=== PATIENT | male | born 1970 | race Caucasian/White ===

== ENCOUNTER → 2017-12-26 | Outpatient (CLI) | payer BC ==
--- NOTE | 2017-12-26 08:16 | DIAGNOSTIC IMAGING REPORT ---
FUSION CT SINUSES W/O HISTORY: 47 years-old Male CHRONIS SINUSITIS reported mass of the left middle meatus COMPARISON: None available TECHNIQUE: Multiple axial CT images of the paranasal sinuses were obtained without the use of IV contrast. Axial [employer] images were also obtained. A dose lowering technique was used consistent with the principals of LIZETT. FINDINGS: The imaged intracranial structures demonstrate no acute abnormality. 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 No skull fracture. Mastoid air cells and middle ear cavities are clear. Soft tissues, scalp and orbits are within normal limits. There is severe mucosal thickening of the left maxillary sinus with central increased attenuation suggesting inspissated mucosal debris. Absent medial wall of the left maxillary sinus suggests prior maxillary antrostomy. Heterogeneous mucosal debris of the left maxillary sinus extends through the left maxillary ostiomeatal unit into the left middle meatus, nicely seen on image 28 series 300. The right maxillary ostiomeatal unit is patent. There is mild mucoperiosteal thickening about the right maxillary sinus. The frontal sinuses are generally clear with only minimal mucosal thickening of the inferior right frontal sinus. 8 mm focus of polypoid mucosal thickening involves the inferomedial aspect of the right sphenoid sinus. Patency of the bilateral frontoethmoidal recesses. Mild mucosal thickening of the right sphenoid sinus with the left sphenoid sinus generally clear. Mucosal thickening of the right sphenoethmoidal recess causes mild narrowing. The left sphenoethmoidal recess is patent. There is mild to moderate mucosal thickening about the ethmoid air cells. Mild rightward bowing and spurring about the nasal septum. No large digna bullosa identified. Anjali grant appears normal. No Az cell identified. Nasopharynx appears patent. IMPRESSION: 1. Severe mucosal thickening of the left maxillary sinus with increased attenuation of the left maxillary antrum suggesting inspissated mucosal debris. Heterogeneous mucosal material of the left maxillary sinus extends through the left ostiomeatal unit into the left middle meatus. This could be correlated with direct visualization. 2. Additional paranasal sinus disease as above. 3. Mild rightward bowing and spurring about the nasal septum. The above report was generated using voice recognition software. It may contain grammatical, syntax or spelling errors. Electronically signed by: Weston Rodriguez M.D. 12/26/2017 8:14 AM Dictated Date/Time: 12/26/2017 8:05 AM
== END | disposition home or self-care (01) ==
LOC: C.CTS 07:50
DX: J32.9 Chronic sinusitis, unspecified (principal)